=== PATIENT | male | born 1980 | race Caucasian/White ===

== ENCOUNTER 2023-02-27 04:25 | Day surgery (SDC) | payer OTHER ==
[2023-02-23 13:01] VITALS: BMI 23.3
[2023-02-27] MEDS ORDERED: IOHEXOL 180 MG/1 ML ML IJ ONE (11:08)
[2023-02-27] MEDS ORDERED: LIDOCAINE HCL 1% PRESERVATIVE FREE - 30ML VIAL IJ ONE (11:08)
[2023-02-27] MEDS ORDERED: TRIAMCINOLONE ACETONIDE 40 MG/ML 10 ML VIAL IJ ONE (11:08)
[2023-02-27] MEDS ORDERED: BUPIVACAINE HCL/PF 0.5% (5MG/ML) 10 ML VIAL IJ ONE (11:08)
[2023-02-27 11:24] VITALS: RESP 18
[2023-02-27 13:04] VITALS: BP 111/71; PULSE 81; TEMP 97.6
[2023-02-27] MEDS ORDERED: ACETAMINOPHEN 500 MG TABLET (FP) PO PRN (19:40)
== END 2023-02-27 12:30 | disposition home or self-care (01) ==
LOC: JASU-SURG 04:25
PROVIDERS: ATTEND Pain Medicine Pain Medicine
PROC: 3E0U3BZ Introduction of Anesthetic Agent into Joints, Percutaneous Approach (ICD-10-PCS; 2023-02-27)
PROC: 3E0U33Z Introduction of Anti-inflammatory into Joints, Percutaneous Approach (ICD-10-PCS; principal; 2023-02-27 12:15)
DX: M53.3 Sacrococcygeal disorders, not elsewhere classified (principal)
CPT/HCPCS: 76000-TC-FY

== ENCOUNTER 2023-04-02 04:19 | Day surgery (SDC) | payer OTHER ==
[2023-04-02 08:19] VITALS: BMI 21.6
[2023-04-02 08:53] VITALS: TEMP 97.6
[2023-04-02 09:19] VITALS: RESP 14
[2023-04-02 09:25] VITALS: BP 104/75; PULSE 63
== END 2023-04-02 09:05 | disposition home or self-care (01) ==
LOC: JASU-ENDO 04:19
PROVIDERS: ATTEND Internal Medicine Gastroenterology
PROC: 0DB78ZX Excision of Stomach, Pylorus, Via Natural or Artificial Opening Endoscopic, Diagnostic (ICD-10-PCS; 2023-04-02)
PROC: 0DB68ZX Excision of Stomach, Via Natural or Artificial Opening Endoscopic, Diagnostic (ICD-10-PCS; 2023-04-02)
PROC: 0DB98ZX Excision of Duodenum, Via Natural or Artificial Opening Endoscopic, Diagnostic (ICD-10-PCS; principal; 2023-04-02 08:45)
DX: K29.80 Duodenitis without bleeding (principal); K29.50 Unspecified chronic gastritis without bleeding
CPT/HCPCS: 88305-TC; 88342-TC

== ENCOUNTER 2023-04-09 04:47 | Day surgery (SDC) | payer OTHER ==
[2023-04-04 14:39] VITALS: BMI 23.8
[2023-04-09 10:49] VITALS: TEMP 97
[2023-04-09 11:30] VITALS: BP 118/76; PULSE 67; RESP 16
== END 2023-04-09 12:08 | disposition home or self-care (01) ==
LOC: JASU-ENDO 04:47
PROVIDERS: ATTEND Internal Medicine Gastroenterology
PROC: 0DJD8ZZ Inspection of Lower Intestinal Tract, Via Natural or Artificial Opening Endoscopic (ICD-10-PCS; principal; 2023-04-09 10:00)
DX: R10.84 Generalized abdominal pain (principal); K64.8 Other hemorrhoids

== ENCOUNTER 2023-06-26 05:12 | Day surgery (SDC) | payer OTHER ==
[2023-06-22 10:47] VITALS: BMI 23.3
[2023-06-26] MEDS ORDERED: BUPIVACAINE HCL/PF 0.5% (5MG/ML) 10 ML VIAL ONE (07:52)
[2023-06-26] MEDS ORDERED: TRIAMCINOLONE ACET 40MG/1ML VIAL ONE (07:52)
[2023-06-26] MEDS ORDERED: LIDOCAINE 1% P/F 10 MG/ML VIAL INF ONE ×2 (13:09→13:18)
[2023-06-26] MEDS ORDERED: IOHEXOL 180 MG/1 ML ML IJ ONE ×2 (13:09→13:18)
[2023-06-26] MEDS ORDERED: TRIAMCINOLONE ACET 40MG/1ML VIAL IM ONE ×2 (13:10→13:18)
[2023-06-26 13:40] VITALS: RESP 20
[2023-06-26 14:21] VITALS: BP 112/70; PULSE 80; TEMP 98
[2023-06-26] MEDS ORDERED: ACETAMINOPHEN 500 MG TABLET (FP) PO PRN (15:26)
== END 2023-06-26 14:10 | disposition home or self-care (01) ==
LOC: JASU-SURG 05:12
PROVIDERS: ATTEND Pain Medicine Pain Medicine
PROC: 3E0U3BZ Introduction of Anesthetic Agent into Joints, Percutaneous Approach (ICD-10-PCS; 2023-06-26)
PROC: 3E0U33Z Introduction of Anti-inflammatory into Joints, Percutaneous Approach (ICD-10-PCS; principal; 2023-06-26 14:00)
DX: M53.3 Sacrococcygeal disorders, not elsewhere classified (principal)
CPT/HCPCS: 76000-TC-FY

== ENCOUNTER 2023-12-17 04:27 | Day surgery (SDC) | payer OTHER ==
[2023-12-13 13:36] VITALS: BMI 23.3
[2023-12-17] MEDS ORDERED: MIDAZOLAM HCL 2 MG/2 ML SINGLE DOSE VIAL ONE ×2 (16:50→16:56)
[2023-12-17] MEDS ORDERED: FENTANYL CITRATE/PF 50 MCG/ML VIAL ONE ×3 (16:50→17:02)
[2023-12-17] MEDS ORDERED: PROPOFOL 20 ML ONE (16:59)
[2023-12-17 17:32] VITALS: BP 94/59; PULSE 73; RESP 20; TEMP 97.7
== END 2023-12-17 19:00 | disposition home or self-care (01) ==
LOC: JASU-SURG 04:27
PROVIDERS: ATTEND Urology
PROC: 0TF3XZZ Fragmentation in Right Kidney Pelvis, External Approach (ICD-10-PCS; principal; 2023-12-17 16:00)
DX: N20.0 Calculus of kidney (principal)

== ENCOUNTER 2024-02-07 04:24 | Day surgery (SDC) | payer OTHER ==
[2024-01-30 15:20] VITALS: BMI 23.3
[2024-02-07] MEDS ORDERED: LIDOCAINE HCL/PF 1% SDV 5ML VIAL ONE (15:05)
[2024-02-07 15:35] VITALS: BP 120/77; PULSE 78; RESP 20; TEMP 97.8
[2024-02-07] MEDS ORDERED: ACETAMINOPHEN 500 MG TABLET (FP) PO PRN (16:36)
== END 2024-02-07 15:33 | disposition home or self-care (01) ==
LOC: JASU-SURG 04:24
PROVIDERS: ATTEND Pain Medicine Pain Medicine
PROC: 3E0U3BZ Introduction of Anesthetic Agent into Joints, Percutaneous Approach (ICD-10-PCS; 2024-02-07)
PROC: 3E0U33Z Introduction of Anti-inflammatory into Joints, Percutaneous Approach (ICD-10-PCS; principal; 2024-02-07 15:17)
DX: M53.3 Sacrococcygeal disorders, not elsewhere classified (principal)
CPT/HCPCS: 76000-TC-FY

== ENCOUNTER 2024-05-06 04:33 | Day surgery (SDC) | payer OTHER ==
[2024-05-02 14:05] VITALS: BMI 23.3
[2024-05-06] MEDS ORDERED: MIDAZOLAM HCL 2 MG/2 ML SINGLE DOSE VIAL ONE (12:11)
[2024-05-06] MEDS ORDERED: ONDANSETRON 4 MG/2 ML VIAL ONE (12:14)
[2024-05-06 13:11] VITALS: PULSE 68; RESP 20
[2024-05-06 13:41] VITALS: BP 109/77; TEMP 97.3
== END 2024-05-06 13:55 | disposition home or self-care (01) ==
LOC: JASU-SURG 04:33
PROVIDERS: ATTEND Urology
PROC: 0TF4XZZ Fragmentation in Left Kidney Pelvis, External Approach (ICD-10-PCS; principal; 2024-05-06 13:30)
DX: N20.0 Calculus of kidney (principal)

== ENCOUNTER 2024-05-29 04:04 | Day surgery (SDC) | payer OTHER ==
[2024-05-26 14:02] VITALS: BMI 23.3
[2024-05-29] MEDS ORDERED: TRIAMCINOLONE ACET 40MG/1ML VIAL ONE (07:19)
[2024-05-29] MEDS ORDERED: LIDOCAINE HCL/PF 1% SDV 5ML VIAL ONE (07:20)
[2024-05-29] MEDS ORDERED: BUPIVACAINE HCL/PF 0.5% (5MG/ML) 10 ML VIAL ONE (07:20)
[2024-05-29] MEDS ORDERED: ACETAMINOPHEN 500 MG TABLET (FP) PO PRN (08:36)
[2024-05-29] MEDS: IOHEXOL 180 MG/1 ML ML IJ ONE (09:57)
[2024-05-29] MEDS: LIDOCAINE 1% P/F 10 MG/ML VIAL INF ONE ×2 (10:00)
[2024-05-29] MEDS: TRIAMCINOLONE ACET 40MG/1ML VIAL IM ONE ×2 (10:01)
[2024-05-29] MEDS: BUPIVACAINE HCL/PF 0.5% (5 MG/ML) 30 ML VIAL IJ ONE ×2 (10:02)
[2024-05-29 10:20] VITALS: BP 112/67; PULSE 65; RESP 16; TEMP 97.7
== END 2024-05-29 10:32 | disposition home or self-care (01) ==
LOC: JASU-SURG 04:04
PROVIDERS: ATTEND Pain Medicine Pain Medicine
PROC: 3E0U3BZ Introduction of Anesthetic Agent into Joints, Percutaneous Approach (ICD-10-PCS; 2024-05-29)
PROC: 3E0U33Z Introduction of Anti-inflammatory into Joints, Percutaneous Approach (ICD-10-PCS; principal; 2024-05-29 09:00)
DX: M53.3 Sacrococcygeal disorders, not elsewhere classified (principal)
CPT/HCPCS: 76000-TC-FY

== ENCOUNTER 2024-06-18 15:51 | Emergency (ER) | payer OTHER ==
[2024-06-18 16:08] VITALS: RESP 18; TEMP 98.7; BMI 22.4
[2024-06-18] MEDS: SODIUM CHLORIDE 1,000 ML IV STA (17:18)
[2024-06-18 17:21] LABS: BASO % 0.5 % (0-2.0); EOS % 0.8 % (0-4.5); HEMOGLOBIN 15.3 GM/dL (11.7-16.9); LYMPH % 23.4 % (8-40); MCH 31.3 pg (25.7-33.7); MEAN CELL VOLUME 92.1 fl (80-96); MEAN PLT VOLUME 10.2 fl (7.5-11.1); MONO % 7.8 % (3.8-10.2); NEUT % 67.5 % (42.8-82.8); PLATELET COUNT 208 10^3/uL (134-434); RBC 4.88 M/mm3 (4.00-5.60); RDW 13.3 % (11.9-15.9); WHITE BLOOD COUNT 8.9 K/mm3 (4.0-10.0)
[2024-06-18 17:22] LABS: PH,URINE 5.5 (5.0-8.0); URINE APPEARANCE CLEAR; URINE BILIRUBIN NEGATIVE (NEGATIVE); URINE COLOR YELLOW; URINE GLUCOSE (UA) NEGATIVE (NEGATIVE); URINE KETONE NEGATIVE (NEGATIVE); URINE LEUK ESTERASE NEGATIVE (NEGATIVE); URINE NITRITE NEGATIVE (NEGATIVE); URINE PROTEIN NEGATIVE (NEGATIVE); URINE UROBILINOGEN 0.2 mg/dL (0.2-1.0)
[2024-06-18 17:46] LABS: POTASSIUM 4.2 mmol/L (3.5-5.1)
[2024-06-18 17:48] LABS: CALCIUM 9.1 mg/dL (8.5-10.1)
[2024-06-18 17:49] LABS: ALBUMIN 4.1 g/dl (3.4-5.0); BLOOD UREA NITROGEN 15.6 mg/dL (7-18)
[2024-06-18 17:52] LABS: CREATININE 0.8 mg/dL (0.55-1.3)
[2024-06-18] MEDS ORDERED: ACETAMINOPHEN INJECTION 100 ML ONE (17:52)
[2024-06-18 17:53] LABS: BILIRUBIN,TOTAL 0.6 mg/dL (0.2-1)
[2024-06-18 17:54] LABS: TOT PROT 7.4 g/dl (6.4-8.2)
[2024-06-18] MEDS: ACETAMINOPHEN 1000 MG/100 ML BAG IVPB ONE (17:57)
[2024-06-18 18:31] LABS: HIV INTERPRETATION NEGATIVE (NEGATIVE)
[2024-06-18] MEDS ORDERED: SULFAMETHOXAZOLE/TRIMETHOPRIM 800MG/160MG D.S. TABLET ONE (20:45)
[2024-06-18] MEDS: SULFAMETHOXAZOLE/TRIMETHOPRIM 800MG/160MG D.S. TABLET PO ONE (20:49)
[2024-06-18 20:52] VITALS: BP 121/81; PULSE 68
== END 2024-06-18 20:53 | disposition home or self-care (01) ==
LOC: JER 15:51
PROC: 3E033NZ Introduction of Analgesics, Hypnotics, Sedatives into Peripheral Vein, Percutaneous Approach (ICD-10-PCS; principal; 2024-06-18)
PROC: 3E0337Z Introduction of Electrolytic and Water Balance Substance into Peripheral Vein, Percutaneous Approach (ICD-10-PCS; 2024-06-18)
DX: R10.32 Left lower quadrant pain (principal); K59.00 Constipation, unspecified; M54.50 Low back pain, unspecified; K52.9 Noninfective gastroenteritis and colitis, unspecified; L02.212 Cutaneous abscess of back [any part, except buttock and flank]
CPT/HCPCS: 36415; 74177-TC; 80053; 81003; 85025; 86803; 87086; 87389; 99285-25; J0131; Q9967